=== PATIENT | male | born 2000 | race Caucasian/White ===

== ENCOUNTER 2022-07-30 22:32 | Emergency (ER) | payer OTHER, SELFPAY ==
[2022-07-30 22:43] VITALS: BP 148/81; PULSE 106; RESP 16; TEMP 37.7; O2SAT 100; BMI 26.4
--- NOTE | 2022-07-30 23:01 | CRLHL7_ITS ---
For Patients: As a result of the Century Cures Act, medical imaging exams and procedure reports are released immediately into your electronic medical record. You may view this report before your referring provider. If you have questions, please contact your health care provider. INDICATION: Choking episode, check for airway foreign body. TECHNIQUE: CT chest without contrast. COMPARISON: None. FINDINGS: Lungs and pleura: No suspicious nodules or infiltrates. No pleural effusions, pleural thickening, or pneumothorax. Heart and vasculature: Heart size is normal. Thoracic aorta and pulmonary artery are normal in caliber. Lymph nodes/mediastinum: No mediastinal, hilar, or axillary adenopathy. Fluid-filled esophagus. Chest wall: No masses. Upper abdomen: No significant findings. Bones: Unremarkable for age. IMPRESSION: No airway foreign body. Clear lungs without evidence of aspiration. Fluid-filled esophagus, which increases the patient`s risk for aspiration. Please note that all CT scans at this facility use dose modulation, iterative reconstruction, and/or weight-based dosing when appropriate to reduce radiation dose to as low as reasonably achievable. Dictated by Tulio Silva MD @ 07/30/2022 11:57:42 PM (Electronically Signed)
--- NOTE | 2022-07-30 23:02 | ED_ITS ---
HPI - General Adult General Time Seen by Provider: 23:02 <Job Gonsalves MD - Last Filed: 08/01/22 00:06> Date Seen: 07/30/22 <Job Gonsalves MD - Last Filed: 08/01/22 00:06> Chief complaint: Skin/Abscess/Foreign Body <Job Gonsalves MD - Last Filed: 08/01/22 00:06> Stated complaint: choked on some food, difficulty breathing <Job Gonsalves MD - Last Filed: 08/01/22 00:06> Time Seen by Provider: 07/30/22 22:54 <Job Gonsalves MD - Last Filed: 08/01/22 00:06> Source: patient and family <Job Gonsalves MD - Last Filed: 08/01/22 00:06> Mode of arrival: ambulatory <Job Gonsalves MD - Last Filed: 08/01/22 00:06> Limitations: no limitations <Job Gonsalves MD - Last Filed: 08/01/22 00:06> History of Present Illness HPI narrative: 21-year-old male who comes in today with concern for possible aspiration and choking episode. Patient was eating tonight and started choking on a piece of meat. Father given the Heimlich. Patient still feels like there is something stuck in his throat. He says it hurts to swallow and that when he tried to drink water earlier he read stood back up. He says he feels short of breath and has some tightness in the middle of his chest. No coughing, no voice change. <Job Gonsalves MD - Last Filed: 08/01/22 00:06> Related Data Home medications: Home Medications Medication Instructions Recorded Confirmed No Known Home Medications 07/30/22 07/30/22 <Job Gonsalves MD - Last Filed: 08/01/22 00:06> Allergies/adverse reactions: Allergies Allergy/AdvReac Type Severity Reaction Status Date / Time cashew nut Allergy Severe Anaphylaxis Verified 07/30/22 22:50 peanut Allergy Severe Anaphylaxis Verified 07/30/22 22:50 tree nut Allergy Severe Anaphylaxis Verified 07/30/22 22:50 seasonal Allergy Mild runny nose Uncoded 07/30/22 22:50 <Job Gonsalves MD - Last Filed: 08/01/22 00:06> [facility] Social History: Social History Smoking Status: Current every day smoker Do you use any of these nicotine containing products: E-Cigarettes and Vaping Products Second hand tobacco smoke exposure: No How often do you have a drink containing alcohol: never AUDIT-C Alcohol total score: 0 Non-prescribed substance use: denies use <Job Gonsalves MD - Last Filed: 08/01/22 00:06> Exam Narrative: Exam Narrative: General: Well-developed and well-nourished, no acute distress Head: Atraumatic and normocephalic Eyes: Pupils are equal reactive, extraocular motions intact, conjunctiva clear ENT: External nose and ears are normal, posterior pharynx without erythema or exudate Neck: No midline cervical tenderness, full spontaneous range of motion the neck, trachea midline, no adenopathy Heart: Regular rate and rhythm no murmurs or thrills Lungs: Clear to auscultation bilaterally without wheezes or crackles Abdomen: Soft, nontender, nondistended with active bowel sounds Musculoskeletal: No tenderness, deformity, or edema Neurologic: Awake, alert, and oriented x3, no gross focal neurologic deficits, cranial nerves intact as tested Psych: Mood and affect are appropriate Skin: No rashes <Job Gonsalves MD - Last Filed: 08/01/22 00:06> Const: Vital Signs, click to edit/add: Vital Signs - 24 hr 07/30/22 22:43 Temperature 99.8 F H Pulse Rate [Left P ulse Oximeter] 106 H Respiratory Rate 16 Blood Pressure [Ri ght Upper Arm] 148/81 H Pulse Oximetry 100 Oxygen Delivery Me thod Room Air <Job Gonsalves MD - Last Filed: 08/01/22 00:06> Vital Signs, click to edit/add: Vital Signs - 24 hr 07/30/22 22:43 Temperature 99.8 F H Pulse Rate [Left P ulse Oximeter] 106 H Respiratory Rate 16 Blood Pressure [Ri ght Upper Arm] 148/81 H Pulse Oximetry 100 Oxygen Delivery Me thod Room Air <Sera Burch MD - Last Filed: 07/31/22 00:55> Course Course Hospital Course: Patient presents today after an episode of choking concerned about aspirating piece of meat. On exam here, no stridor or voice changes, breathing comfortably. Diminished breath sounds on the right although poor effort. Patient says when he drinks water he coughs up ?foamy slimy stuff. ? Symptoms at this time sound more like esophageal foreign body, but cannot exclude lower airway foreign body. Upper airway foreign bodies unlikely as patient has no symptoms of upper airway obstruction. CT scan of the chest is ordered to evaluate lower airways. If this is negative, patient will be treated for possible esophageal foreign body. <Job Gonsalves MD - Last Filed: 08/01/22 00:06> Reevaluation(s) Reevaluation #1: CT scan independently interpreted by me demonstrates patent airways, there is an air-fluid level in the esophagus consistent with obstruction. Patient will be octreotide adn EZ gas to help relieve obstruction. <Job Gonsalves MD - Last Filed: 08/01/22 00:06> Time: 23:46 <Job Gonsalves MD - Last Filed: 08/01/22 00:06> Vital Signs Vital signs: Initial Vital Signs Temperature 99.8 F H 07/30/22 22:43 Temperature Source Temporal Artery Scan 07/30/22 22:43 Pulse Rate 106 H 07/30/22 22:43 Respiratory Rate 16 07/30/22 22:43 Blood Pressure 148/81 H 07/30/22 22:43 Blood Pressure Mean 103 07/30/22 22:43 Blood Pressure Position Sitting 07/30/22 22:43 Pulse Oximetry 100 07/30/22 22:43 Oxygen Delivery Method 07/30/22 22:43 Vital Signs Temperature 99.8 F H 07/30/22 22:43 Pulse Rate 106 H 07/30/22 22:43 Respiratory Rate 16 07/30/22 22:43 Blood Pressure 148/81 H 07/30/22 22:43 Pulse Oximetry 100 07/30/22 22:43 Oxygen Delivery Method 07/30/22 22:43 Temperature 99.8 F H 07/30/22 22:43 Pulse Rate 106 H 07/30/22 22:43 Respiratory Rate 16 07/30/22 22:43 Blood Pressure 148/81 H 07/30/22 22:43 Pulse Oximetry 100 07/30/22 22:43 Oxygen Delivery Method 07/30/22 22:43 <Job Gonsalves MD - Last Filed: 08/01/22 00:06> Initial Vital Signs Temperature 99.8 F H 07/30/22 22:43 Temperature Source Temporal Artery Scan 07/30/22 22:43 Pulse Rate 106 H 07/30/22 22:43 Respiratory Rate 16 07/30/22 22:43 Blood Pressure 148/81 H 07/30/22 22:43 Blood Pressure Mean 103 07/30/22 22:43 Blood Pressure Position Sitting 07/30/22 22:43 Pulse Oximetry 100 07/30/22 22:43 Oxygen Delivery Method 07/30/22 22:43 Vital Signs Temperature 99.8 F H 07/30/22 22:43 Pulse Rate 106 H 07/30/22 22:43 Respiratory Rate 16 07/30/22 22:43 Blood Pressure 148/81 H 07/30/22 22:43 Pulse Oximetry 100 07/30/22 22:43 Oxygen Delivery Method 07/30/22 22:43 Temperature 99.8 F H 07/30/22 22:43 Pulse Rate 106 H 07/30/22 22:43 Respiratory Rate 16 07/30/22 22:43 Blood Pressure 148/81 H 07/30/22 22:43 Pulse Oximetry 100 07/30/22 22:43 Oxygen Delivery Method 07/30/22 22:43 <Sera Burch MD - Last Filed: 07/31/22 00:55> Medical Decision Making MDM Narrative Medical decision making narrative: Unfortunately, the octreotide was unavailable. Instead, patient was given 0.5 mg of IV Ativan and within about a minute, felt things opening up. He did take the EZ gas as we recommended and this went through very well. I visit with them about 5 minutes later and he is able to drink liquids and is feeling comp letely better. We discussed precautions, dietary recommendations for the next 24 hours, pain control. All questions answered. CT scan is reviewed with the family as well. This shows evidence of the food impaction but no other significant abnormality per my interpretation. This is confirmed with radiologist report. <Sera Burch MD - Last Filed: 07/31/22 00:55> Discharge Plan Discharge Clinical Impression: Esophageal obstruction due to food impaction <Job Gonsalves MD - Last Filed: 08/01/22 00:06> Patient Disposition: Home w/ Parent or Adult <Job Gonsalves MD - Last Filed: 08/01/22 00:06> Condition: Improved <Job Gonsalves MD - Last Filed: 08/01/22 00:06> Instructions: Food Impaction (ED) <Job Gonsalves MD - Last Filed: 08/01/22 00:06> Additional Instructions: I am Glad that the obstruction has relieved. I do recommend very soft or pureed foods for the next 24 hours. It is okay to use Maalox to help coat the e sophagus or [id number] stomach acid medicines like Pepcid. Avoid very hot beverages but it is okay to drink cold beverages. Eat and drink slowly, pausing between bites and sips will allow things to fully pass prior to taking another bite. Things may be tender for a few days. It is okay to use Tylenol and/or ibuprofen for discomfort. These are actually very common but are unlikely to happen again. Try to chew your food well and eat slowly to avoid recurrence. <Job Gonsalves MD - Last Filed: 08/01/22 00:06> Activity Level: No Restrictions <Job Gonsalves MD - Last Filed: 08/01/22 00:06> No Restrictions <Sera Burch MD - Last Filed: 07/31/22 00:55> Discharge Diet: Regular <Job Gonsalves MD - Last Filed: 08/01/22 00:06> Regular <Sera Burch MD - Last Filed: 07/31/22 00:55> Prescriptions: No Action No Known Home Medications <Job Gonsalves MD - Last Filed: 08/01/22 00:06> Follow Up/Referrals: Rony Lopes MD [Primary Care Provider] - <Job Gonsalves MD - Last Filed: 08/01/22 00:06> Stand Alone Forms: MyHealth Info Instructions <Job Gonsalves MD - Last Filed: 08/01/22 00:06>
[2022-07-31] MEDS: SIMETHICONE/SOD BICARB/CIT AC 1 EACH GRAN.EF.PK PO (00:46)
[2022-07-31] MEDS: LORazepam 2 MG/ML inj 0.5 MG IVP (00:47)
== END 2022-07-31 01:09 | disposition home or self-care (01) ==
PROVIDERS: Emergency Provider Family Medicine; PCP Family Medicine
DX: T18.128A Food in esophagus causing other injury, initial encounter (principal)
CPT/HCPCS: 71250; 96374; 99284; J2060